=== PATIENT | male | born 1965 | race Hispanic/Latino ===

== ENCOUNTER 2024-08-04 13:40 | Outpatient (CLI) | payer BC | END 2024-08-04 13:41 | disposition home or self-care (01) | LOC: CSHLAB 13:40 | PROVIDERS: ATTEND Surgery | DX: Z01.818 Encounter for other preprocedural examination (principal); K64.8 Other hemorrhoids; K64.4 Residual hemorrhoidal skin tags | CPT/HCPCS: 93005; 93010 ==

== ENCOUNTER 2024-08-05 09:01 | Day surgery (SDC) | payer BC ==
[2024-08-04 09:35] VITALS: BMI 27.1
[2024-08-05] MEDS ORDERED: Bupivacaine HCl 0.5%/Epinephrine 1:200,000/PF 30 ml Vial ONE (11:24)
[2024-08-05] MEDS ORDERED: Lidocaine 2% 6 ML (Jelly) SYR ONE (11:24)
[2024-08-05] MEDS ORDERED: ceFOXitin 1 GM VIAL ONE (12:11)
[2024-08-05] MEDS ORDERED: PROPOFOL 20 ML ONE (12:20)
[2024-08-05] MEDS ORDERED: fentaNYL 50 mcg/mL 1 mL Vial ONE (12:20)
[2024-08-05] MEDS ORDERED: Midazolam HCl 2 mg/2 ml Vial ONE (12:20)
[2024-08-05] MEDS ORDERED: Dexamethasone 4 mg/ml Vial ONE ×2 (12:22→12:29)
[2024-08-05] MEDS ORDERED: Ondansetron PF 4 MG/2 ML Vial ONE ×2 (12:22→12:29)
[2024-08-05] MEDS ORDERED: HYDROcodone/Acetaminophen 5/325 mg Tablet ONE (14:02)
== END 2024-08-05 15:50 | disposition home or self-care (01) ==
LOC: CSHSDC 09:01
PROVIDERS: ATTEND Surgery
PROC: 06BY3ZC Excision of Hemorrhoidal Plexus, Percutaneous Approach (ICD-10-PCS; principal; 2024-08-05)
DX: K64.2 Third degree hemorrhoids (principal); K64.8 Other hemorrhoids; E78.00 Pure hypercholesterolemia, unspecified; E78.2 Mixed hyperlipidemia; K21.9 Gastro-esophageal reflux disease without esophagitis; M47.26 Other spondylosis with radiculopathy, lumbar region; I10 Essential (primary) hypertension; Z79.899 Other long term (current) drug therapy
CPT/HCPCS: 88304; J0694; J1100; J2250; J2405; J2704; J3010